=== PATIENT | female | born 1985 | race Caucasian/White ===

== ENCOUNTER 2024-02-12 07:43 | Emergency (ER) | payer OTHER, SELFPAY ==
[2024-02-12 07:50] VITALS: BP 108/77
[2024-02-12 08:39] VITALS: BMI 24.5
[2024-02-12 09:03] LABS: % Basophils 0.3 % (0-2); % Immature Granulocytes 0.3 % (0-0.5); % Lymphocytes 23.6 % (20.5-51.1); % Monocytes 3.9 % (1.7-9.3); % Neutrophils 71.9 % (42.2-75.2); Absolute Monocytes 0.3 10^3/uL (0.1-0.6); Absolute Neutrophils 6.2 10^3/uL (1.4-6.5); Hematocrit 34.7 % (37.0-47.0); Hemoglobin 12.8 g/dL (12.0-16.0); Mean Corp Hgb Conc. 36.9 g/dL (33.0-37.0); Mean Corpuscular Hgb 31.8 pg (27.0-31.0); Mean Corpuscular Volume 86.1 fL (81.0-99.0); Mean Platelet Volume 9.6 fL (7.4-10.4); Nucleated Red Blood Cells % 0 %; Platelet Count 271 10^3/uL (130-400); Red Blood Cell Count 4.03 10^6/uL (4.20-5.40); Red Cell Dist. Width 12.7 % (11.5-14.5); White Blood Cell Count 8.6 10^3/uL (4.8-10.8)
[2024-02-12 09:30] LABS: ALT (SGPT) 15 U/L (0-35); AST (SGOT) 20 U/L (14-36); Albumin 4.3 g/dl (3.5-5.0); Alkaline Phosphatase 50 U/L (38-126); Blood Urea Nitrogen 6 mg/dl (7-17); Calcium 9.4 mg/dl (8.4-10.2); Carbon Dioxide 27 mmol/L (22-30); Chloride 108 mmol/L (98-107); Estimated Creatinine Clearance 110 ml/min; Glucose 100 mg/dl (70-99); Lipase 36 U/L (23-300); Potassium 4.6 mmol/L (3.5-5.1); Sodium 142 mmol/L (135-145); Total Bilirubin 0.7 mg/dl (0.2-1.3); Total Protein 6.8 g/dl (6.3-8.2); eGFR > 60.00
[2024-02-12] MEDS: ZOFRAN 4 MG IV (10:06)
[2024-02-12] MEDS: MAALOX 30 PO (10:06)
[2024-02-12] MEDS: PEPCID 20 MG IV (10:06)
--- NOTE | 2024-02-12 10:36 | ED.GENMED ---
History of Present Illness
General
Chief Complaint: Abdominal Pain
Source: patient and family
Exam Limitations: none
Time Seen by Provider: 02/12/24 09:06
Nursing documentation reviewed up to this point in time: agreed with
Travel History
Have you had any contact with someone who has COVID-19?: No
Do you have any symptoms of coronavirus? Fever > 100 degrees, chills, cough, shortness of breath, sore throat, loss of taste or smell, muscle aches, or headache?: No
History of Present Illness
History of Present Illness:
38-year-old female past medical history of colitis presenting to the emergency department today with concerns of left upper quadrant abdominal pain associated nausea vomiting diarrhea overnight last night improving today. Similar pain a month ago
that went away after omeprazole and Gas-X. Denies any chest pain shortness of breath fever.
Past History
Past History
ED Past Medical History: None
ED Past Surgical History: Appendectomy and Gynecological
Social History
Tobacco: Non-smoker
Alcohol: None
Drug: None
Personal: Single
Living: with family
Review of Systems
Review of Systems
Allergies reviewed?: Yes
All Other Systems: ROS reviewed and negative except as documented in HPI and ROS
Phy Exam
Physical Exam
Physical Exam:
GENERAL: Alert , in no apparent distress
EYE: pupils equal and reactive
NECK: Supple, no significant adenopathy.
ENT: o/p clr, mmm.
CARDIAC: Regular rate and rhythm .
LUNGS: Clear breath sounds bilaterally, no acute respiratory distress, no wheezes/rales/rhonchi
ABDOMEN: Mild pain to the epigastric region otherwise soft benign abdomen no pain to the right upper quadrant negative Chand's
NEUROLOGICAL: Alert and oriented, no focal neuro deficits
SKIN: Warm and dry, skin intact.
MUSCULOSKELETAL: No edema, well perfused.
PSYCH: Normal and appropriate interaction.
Course
Orders/Labs/Results
Orders:
Orders
02/12/24 08:49
Complete Blood Count/With Diff Urgent
Comprehensive Metabolic Panel Urgent
Lipase Urgent
02/12/24 09:27
EKG [Electrocardiogram (*1)] Urgent
Reason for Study: Abdominal Pain
EKG- Treatment ONCE
Famotidine [Pepcid] 20 mg IV NOW STA
Mag Hydrox/Al Hydrox/Simeth [Maalox] 30 ml Phenobarb/Hyoscy/Atropine/Scop [] 10 ml PO NOW
Ondansetron Injectable [Zofran] 4 mg IV NOW STA
02/12/24 10:03
Mag Hydrox/Al Hydrox/Simeth [Maalox] 30 ml .ROUTE .STK-MED ONE
Phenobarb/Hyoscy/Atropine/Scop [] 10 ml .ROUTE .STK-MED ONE
02/12/24 11:25
Urinalysis Reflex To Culture Urgent
Date Specimen was Collected: 02/12/24
Time Specimen was Collected: 10:45
Abnormal Lab Results
02/12/24
08:49
RBC 4.03 L 10^6/uL
(4.20-5.40)
Hct 34.7 L %
(37.0-47.0)
MCH 31.8 H pg
(27.0-31.0)
Chloride 108 H mmol/L
(98-107)
BUN 6 L mg/dl
(7-17)
Glucose 100 H mg/dl
(70-99)
02/12/24 08:49
02/12/24 08:49
Vital Signs
Initial and Last Documented VS:
Initial Vital Signs
Temp Pulse Resp BP Pulse Ox
98.2 F 77 18 108/77 100
02/12/24 07:50 02/12/24 07:50 02/12/24 07:50 02/12/24 07:50 02/12/24 07:50
Last Documented Vital Signs
Temp Pulse Resp BP Pulse Ox
98.2 F 77 18 108/77 100
02/12/24 07:50 02/12/24 07:50 02/12/24 07:50 02/12/24 07:50 02/12/24 09:00
MDM/Problems Addressed
MDM/Problems Addressed:
38-year-old female presenting to the emergency department today with concerns of mainly epigastric abdominal pain starting last night associated episode of vomiting as well as an episode of diarrhea. On arrival here patient claims that symptoms are
improved since arrival vital signs are normal afebrile labs unremarkable normal lipase liver function tests. EKG normal. Very minimal tenderness to the upper abdomen. Does not seem to be consistent with any surgical pathology was given
symptomatic medications with plans for reassessment. Full symptom resolution after treatment. Very unlikely be surgical pathology advised for close outpatient follow-up return precautions given.
*Critical Care Note
Total Time (30-74mins, 75-104mins- exclusive of procedures): Not Applicable
ED Attending Note
-
Portions of this chart may have been created with voice recognition software.� Occasional wrong word or��sound alike� substitutions may have occurred due to the inherent limitations of voice recognition software.
Discharge Plan
Departure
Patient Disposition: Home (Routine Discharge)
Date of Disposition: 02/12/24
Time of Disposition: 12:12
Patient with high blood pressure during this ER visit?: No
Condition: Good
Covid-19: Not Applicable
Discharge Problem:
Abdominal pain
Instructions: Abdominal Pain
Prescriptions:
No Action
No Current Medications
0
Referrals:
Wendie Vidal MD [Active] - Follow up in 10 days
Grace Paige DO [Family Provider] -
Activity Restrictions/Additional Instructions:
You came to emergency department today with concerns of upper abdominal discomfort. Here you had a reassuring labs and improvement of symptoms after antacid treatment. Please take omeprazole once daily over the next 2 weeks and follow-up closely
with GI. Return to the emergency department for any worsening, new or concerning symptoms.
Interventions
Interventions:
*Risk Screen - Suicide Last Done: 02/12/24 08:40
*General Assessment Last Done: 02/12/24 08:40
*Neglect/Abuse Screening Last Done: 02/12/24 08:40
*ED COVID-19 Vaccine History Last Done: 02/12/24 08:40
PR-Hmfvdk-Gkssjueozg Assessment Last Done: 02/12/24 08:40
Discharge Date and Time
Print Language: CROATIAN
[2024-02-12 11:42] LABS: Urine Albumin Negative (Neg - Trace); Urine Bilirubin Negative (Negative); Urine Character Clear (Clear); Urine Color Yellow; Urine Glucose Negative (Negative); Urine Ketone Negative (Negative); Urine Leukocyte Negative (Negative); Urine Nitrite Negative (Negative); Urine Occult Blood Negative (Negative); Urine Urobilinogen Negative (Neg - 1+)
== END 2024-02-12 12:27 | disposition home or self-care (01) ==
LOC: EMR 07:43
PROVIDERS: Emergency Medicine; Physician Assistant; EMERGENCY PHYSICIAN Emergency Medicine; FAMILY PHYSICIAN Family Medicine
DX: R10.12 Left upper quadrant pain (principal); Z90.49 Acquired absence of other specified parts of digestive tract
CPT/HCPCS: 99283; 96374; 96375; 80053; 81003; 83690; 85025; 93005